=== PATIENT | male | born 1940 | race African-American/Black ===

== ENCOUNTER 2018-07-23 04:34 | Inpatient (IN) | payer OTHER ==
[~2018-07-23] VITALS: Ht 182.9 cm; Wt 78.9 kg
[2018-07-23 08:44] LABS: HEMATOCRIT. 36.5 % (42.0-52.0); HEMOGLOBIN. 12.1 g/dL (14.0-18.0); MEAN CORPUSCULAR HEMOGLOBIN 31.8 pg (28.0-32.0); MEAN CORPUSCULAR VOLUME 95.7 fL (80.0-94.0); MEAN PLATELET VOLUME 7.9 fl (7.4-10.4); PLATELET 105 x1000/uL (130-400); RED BLOOD CELL COUNT 3.81 mill/uL (4.7-6.1); RED CELL DISTRIBUTION WIDTH 14.2 % (11.6-14.6)
[2018-07-23 08:48] LABS: INR 1.1; PROTHROMBIN TIME 10.7 sec (9.1-11.1)
[2018-07-23 08:50] LABS: CHLORIDE 117 mEq/L (98-107)
[2018-07-23] MEDS ORDERED: FUROSEMIDE 100MG/10ML VIAL IV STA (09:14)
[2018-07-23] MEDS ORDERED: ALBUTEROL (0.083%) 2.5MG/3ML NEB HHN ONE (09:15)
[2018-07-23] MEDS ORDERED: SODIUM BICARBONATE 8.4% 1 MEQ/ML 50ML SYR IV ONE (09:15)
[2018-07-23] MEDS ORDERED: TRAMADOL 50MG TABLET PO ONE (09:15)
[2018-07-23] MEDS ORDERED: SODIUM POLYSTYRENE SULFONATE 15 G/60 ML BOT PO ONE (09:15)
[2018-07-23] MEDS ORDERED: DEXTROSE 50% WATER 50ML SYRINGE IV ONE (09:15)
[2018-07-23] MEDS ORDERED: INSULIN REGULAR (HUMULIN R) 300UNITS/3ML IV ONE (09:15)
[2018-07-23 09:38] LABS: PLATELET ESTIMATE SLIGHTLY DECREASED
[2018-07-23] MEDS ORDERED: SODIUM BICARBONATE 8.4% 1 MEQ/ML 50ML SYR IV SCH (10:15)
[2018-07-23] MEDS ORDERED: TRAMADOL 50MG TABLET PO PRN (10:30)
[2018-07-23] MEDS ORDERED: ACETAMINOPHEN 325MG TABLET PO PRN (10:30)
[2018-07-23 10:55] LABS: BG BASE EXCESS -10.9 mmol/L (-2.0-2.0); BG CARBOXYHEMOGLOBIN 0.9 % (0.5-1.5); BG DEOXYHEMOGLOBIN 2.9 % (0.0-5.0); BG FRACTION INSPIRED OXYGEN 21; BG HCO3 ACT 13.7 mmol/L (22.0-26.0); BG METHEMOGLOBIN 0.3 % (0.0-1.5); BG OXYGEN SATURATION 97.1 % (92.0-98.5); BG OXYHEMOGLOBIN 95.9 % (94.0-97.0); BG PCO2 27.3 mmHg (35.0-45.0); BG PH 7.319 (7.350-7.450); BG PO2 93.2 mmHg (75.0-100.0); BG SAMPLE SITE LEFT RADIAL; BG TOTAL HEMOGLOBIN 11.4 g/dL (12.0-18.0); BG VENT MODE ROOM AIR
[2018-07-23 11:35] LABS: CREATINE KINASE 160 IU/L (39-308)
[2018-07-23 12:23] LABS: PROSTRATE SPECIFIC AG TOTAL 5.88 ng/mL (0.0-4.0)
[2018-07-23 12:35] LABS: HEPATITIS B SURFACE ANTIGEN NEGATIVE
[2018-07-23] MEDS ORDERED: LIDOCAINE HCL 1% 20ML VIAL (Pyxis) INJ ONE (12:47)
[2018-07-23 13:04] LABS: HEPATITIS A AB IGM NEGATIVE (NEGATIVE)
[2018-07-23 15:30] LABS: CLARITY URINE CLEAR (CLEAR); COLOR URINE YELLOW (YELLOW); KETONES URINE 1+ (NEGATIVE); LEUKOCYTE ESTERASE URINE NEGATIVE (NEGATIVE); NITRITE URINE NEGATIVE (NEGATIVE); OCCULT BLOOD URINE NEGATIVE (NEGATIVE); PROTEIN URINE TRACE (NEGATIVE); SPECIFIC GRAVITY URINE 1.014 (1.005-1.030); UROBILINOGEN URINE 0.2 E.U./dL (0.2-1.0)
[2018-07-23 15:46] LABS: *AMPHETAMINES SCREEN URINE NEGATIVE (NEGATIVE); *BARBITURATES SCREEN URINE NEGATIVE (NEGATIVE)
[2018-07-23 15:47] LABS: *BENZODIAZEPINES SCREEN URINE NEGATIVE (NEGATIVE); *COCAINE SCREEN URINE NEGATIVE (NEGATIVE); CANNABINOID URINE SCREEN NEGATIVE (NEGATIVE); METHADONE URINE SCREEN NEGATIVE (NEGATIVE); OPIATES URINE SCREEN PRESUMTIVE POSITIVE (NEGATIVE); PHENCYCLIDINE URINE SCREEN NEGATIVE (NEGATIVE)
[2018-07-23] MEDS ORDERED: ONDANSETRON HCL 4MG/2ML INJ IV PRN (17:12)
[2018-07-23] MEDS: PANTOPRAZOLE SODIUM 40 MG/VIAL IV SCH (17:15)
[2018-07-23] MEDS: CITRIC ACID/SODIUM CITRATE SOLN 30ML UDC PO SCH (17:15)
[2018-07-23] MEDS ORDERED: CLONIDINE 0.1MG TABLET PO PRN (17:24)
[2018-07-23 18:00] VITALS: BP 147/72
[2018-07-23 20:00] VITALS: BP 156/69
[2018-07-23] MEDS: AMLODIPINE 5MG TABLET PO SCH (21:00)
[2018-07-23] MEDS ORDERED: PNEUMOCOCCAL 23-VAL P-SAC VAC 0.5 ML IM ONE (21:00)
[2018-07-23] MEDS ORDERED: ACUL5 LEFTEYE (22:45)
[2018-07-23] MEDS ORDERED: ALBU90AE IH (22:45)
[2018-07-23] MEDS ORDERED: BUDE6HFA INH (22:45)
[2018-07-23] MEDS ORDERED: DICL100G31 TP (22:45)
[2018-07-23] MEDS ORDERED: PRED5DRO22 OP (22:45)
[2018-07-23] MEDS ORDERED: METH2.5T MT (22:45)
[2018-07-23] MEDS ORDERED: NORT25CA PO (22:45)
[2018-07-23] MEDS ORDERED: FURO20TA4 PO (22:45)
[2018-07-23] MEDS ORDERED: TERA10CA4 PO (22:45)
[2018-07-23] MEDS ORDERED: BRIM2.5D OP (22:45)
[2018-07-23] MEDS ORDERED: CARB15DR2 EACHEYE (22:45)
[2018-07-23] MEDS ORDERED: CALC-1042 PO (22:45)
[2018-07-23] MEDS ORDERED: AZEL137S7 NS (22:45)
[2018-07-23] MEDS ORDERED: DIFL5DRO LEFTEYE (22:45)
[2018-07-23] MEDS ORDERED: ADAL40KI SQ (22:45)
[2018-07-23] MEDS ORDERED: CLOP75TA33 PO (22:45)
[2018-07-23] MEDS ORDERED: TIOT18CA3 ORI (22:45)
[2018-07-23] MEDS ORDERED: ROSU20TA29 PO (22:45)
[2018-07-23] MEDS ORDERED: CHOL100044 MT (22:45)
[2018-07-23] MEDS ORDERED: CARB1DRO8 OP (22:45)
[2018-07-23] MEDS ORDERED: VALS1TAB74 PO (22:45)
[2018-07-23] MEDS ORDERED: CARV25TA47 PO (22:45)
[2018-07-23] MEDS ORDERED: MONT10TA24 PO (22:45)
[2018-07-23] MEDS ORDERED: LIDO700A30 TP (22:45)
[2018-07-23] MEDS ORDERED: SODI45SP BOTHNSTRLS (22:45)
[2018-07-23] MEDS ORDERED: FOLI-43 PO (22:45)
[2018-07-23] MEDS ORDERED: PANT40TA4 PO (22:45)
[2018-07-23] MEDS ORDERED: VIAG100 PO (22:45)
[2018-07-23] MEDS ORDERED: PYRI-5 PO (22:45)
[2018-07-23] MEDS ORDERED: SODI1PAC NS (22:45)
[2018-07-23] MEDS ORDERED: DORZ10DR12 LEFTEYE (22:45)
[2018-07-24 00:22] VITALS: BP 151/66
[2018-07-24 04:00] VITALS: BP 113/61
[2018-07-24 07:05] LABS: CHLORIDE 110 mEq/L (98-107)
[2018-07-24 07:18] LABS: PHOSPHORUS 5.2 mg/dL (2.5-4.9)
[2018-07-24 07:38] LABS: HEMATOCRIT. 33.6 % (42.0-52.0); HEMOGLOBIN. 11.3 g/dL (14.0-18.0); MEAN CORPUSCULAR HEMOGLOBIN 31.8 pg (28.0-32.0); MEAN CORPUSCULAR VOLUME 94.8 fL (80.0-94.0); PLATELET 69 x1000/uL (130-400); RED BLOOD CELL COUNT 3.55 mill/uL (4.7-6.1); RED CELL DISTRIBUTION WIDTH 14.1 % (11.6-14.6)
[2018-07-24 08:00] VITALS: BP 143/64
[2018-07-24] MEDS: PANTOPRAZOLE SODIUM 40 MG/VIAL IV SCH (08:42)
[2018-07-24] MEDS: AMLODIPINE 5MG TABLET PO SCH ×2 (08:42→20:34)
[2018-07-24] MEDS: CITRIC ACID/SODIUM CITRATE SOLN 30ML UDC PO SCH ×3 (08:42→17:00)
[2018-07-24 10:35] LABS: PLATELET ESTIMATE MARKEDLY DECREASED
[2018-07-24] MEDS ORDERED: SIMETHICONE/SOD BICARB/CIT AC 1 EACH GRAN.EF.PK ONE (10:44)
[2018-07-24] MEDS ORDERED: EZ-HD SUSPENSION(BARIUM SULFATE 340GM) PO ONE (10:44)
[2018-07-24] MEDS ORDERED: BARIUM SULFATE 176 GM SUSP.RECON ONE (10:44)
[2018-07-24] MEDS: LACTULOSE 20G/30ML UDC PO SCH (11:45)
[2018-07-24 12:00] VITALS: BP 136/79
[2018-07-24] MEDS ORDERED: HYDRALAZINE 20MG/ML VIAL IV PRN (12:45)
[2018-07-24] MEDS ORDERED: PIPERACILLIN/TAZ 3.375G PREMIX 50 ML IV NR (14:00)
[2018-07-24 16:00] VITALS: BP 135/58
[2018-07-24] MEDS ORDERED: HYDROMORPHONE HCL/PF 2MG/ML CPJ IV PRN (17:00)
[2018-07-24 20:00] VITALS: BP 108/52
[2018-07-24] MEDS: PIPERACILLIN/TAZ 2.25G PREMIX 50 ML IV SCH (21:15)
[2018-07-25] VITALS (56 sets, daily range): BP systolic 55–113; BP diastolic 30–75
[2018-07-25] MEDS ORDERED: SODIUM CHLORIDE 0.9% 500 ML IV ONE ×2 (01:30→02:00)
[2018-07-25] MEDS ORDERED: NOREPINEPHRINE 8 MG in DEXT 5% WATER 242 ML IV PRN (01:30)
[2018-07-25] MEDS ORDERED: ACETAMINOPHEN 650MG SUPP PR PRN (03:15)
[2018-07-25] MEDS: PIPERACILLIN/TAZ 2.25G PREMIX 50 ML IV SCH (05:31)
[2018-07-25 08:15] LABS: HEMATOCRIT. 28.9 % (42.0-52.0); HEMOGLOBIN. 9.9 g/dL (14.0-18.0); MEAN CORPUSCULAR HEMOGLOBIN 32.3 pg (28.0-32.0); MEAN CORPUSCULAR VOLUME 94.8 fL (80.0-94.0); MEAN PLATELET VOLUME 7.1 fl (7.4-10.4); RED BLOOD CELL COUNT 3.05 mill/uL (4.7-6.1)
[2018-07-25] MEDS ORDERED: PHENYLEPHRINE 40 MG in DEXT 5% WATER 246 ML IV PRN (08:15)
[2018-07-25 08:18] LABS: INR 1.2; PARTIAL THROMBOPLASTIN TIME 32.4 sec (23.4-31.0); PROTHROMBIN TIME 12.2 sec (9.1-11.1)
[2018-07-25 08:21] LABS: PLATELET 35 x1000/uL (130-400)
[2018-07-25] MEDS: CITRIC ACID/SODIUM CITRATE SOLN 30ML UDC PO SCH (08:21)
[2018-07-25] MEDS: AMLODIPINE 5MG TABLET PO SCH (08:21)
[2018-07-25] MEDS: LACTULOSE 20G/30ML UDC PO SCH (08:21)
[2018-07-25 08:34] LABS: CHLORIDE 109 mEq/L (98-107)
[2018-07-25] MEDS: PANTOPRAZOLE SODIUM 40 MG/VIAL IV SCH (08:45)
[2018-07-25 09:20] LABS: BG BASE EXCESS -0.4 mmol/L (-2.0-2.0); BG CARBOXYHEMOGLOBIN 0.8 % (0.5-1.5); BG DEOXYHEMOGLOBIN 5.2 % (0.0-5.0); BG FRACTION INSPIRED OXYGEN 21; BG HCO3 ACT 21.3 mmol/L (22.0-26.0); BG METHEMOGLOBIN 0.3 % (0.0-1.5); BG OXYGEN SATURATION 94.7 % (92.0-98.5); BG OXYHEMOGLOBIN 93.7 % (94.0-97.0); BG PCO2 26.2 mmHg (35.0-45.0); BG PH 7.527 (7.350-7.450); BG PO2 66.8 mmHg (75.0-100.0); BG SAMPLE SITE RIGHT RADIAL; BG TOTAL HEMOGLOBIN 11.7 g/dL (12.0-18.0); BG VENT MODE ROOM AIR
[2018-07-25] MEDS ORDERED: IPRATROPIUM BROMIDE (0.02%) 0.5MG/2.5ML NEB HHN PRN (09:30)
[2018-07-25 09:44] LABS: PHOSPHORUS 3.2 mg/dL (2.5-4.9)
[2018-07-25] MEDS ORDERED: IPRATROPIUM BROMIDE (0.02%) 0.5MG/2.5ML NEB HHN SCH ×2 (10:00→14:00)
[2018-07-25 10:06] LABS: A/G RATIO 0.7 (0.7-1.7); ALBUMIN 2.6 g/dL (2.9-4.4); ALPHA-1-GLOBULIN 0.5 g/dL (0.0-0.4); ALPHA-2-GLOBULIN 0.9 g/dL (0.4-1.0); GAMMA GLOBULINS 1.6 g/dL (0.4-1.8); HIV SCREEN 4G Non Reactive (Non Reactive); M-SPIKE 0.9 g/dL (Not Observed); TOTAL PROTEIN SERUM 6.6 g/dL (6.0-8.5)
[2018-07-25 10:08] LABS: CREATINE KINASE 344 IU/L (39-308)
[2018-07-25 10:11] LABS: PLATELET ESTIMATE MARKEDLY DECREASED
[2018-07-25] MEDS ORDERED: PROPOFOL 10MG/ML 100ML 100 ML IV PRN ×2 (10:30)
[2018-07-25] MEDS ORDERED: VANCOMYCIN 1 G PREMIX 200 ML IV NR (10:30)
[2018-07-25] MEDS ORDERED: SODIUM BICARBONATE 4% (2.4MEQ) 5ML VIAL IV ONE (10:42)
[2018-07-25] MEDS ORDERED: LIDOCAINE HCL 1% 20ML VIAL (Pyxis) INJ ONE (10:42)
[2018-07-25] MEDS ORDERED: ETOMIDATE 2MG/ML 10ML VIAL IV ONE ×2 (10:45→14:16)
[2018-07-25] MEDS ORDERED: VECURONIUM BROMIDE 10 MG/VIAL IV ONE ×2 (10:45→14:16)
[2018-07-25] MEDS ORDERED: DIGOXIN 500MCG/2ML AMP IV NR (11:00)
[2018-07-25 12:20] LABS: BG BASE EXCESS -0.7 mmol/L (-2.0-2.0); BG CARBOXYHEMOGLOBIN 0.3 % (0.5-1.5); BG DEOXYHEMOGLOBIN 0.4 % (0.0-5.0); BG FRACTION INSPIRED OXYGEN 100; BG HCO3 ACT 25.8 mmol/L (22.0-26.0); BG METHEMOGLOBIN 0.3 % (0.0-1.5); BG OXYGEN SATURATION 99.6 % (92.0-98.5); BG PCO2 50.9 mmHg (35.0-45.0); BG PH 7.322 (7.350-7.450); BG SAMPLE SITE RIGHT RADIAL; BG TIDAL VOLUME(mL) 550 mL; BG TOTAL HEMOGLOBIN 10.7 g/dL (12.0-18.0); BG VENT MODE VENT - A/C; BG VENT RATE 14 set
[2018-07-25] MEDS ORDERED: LORAZEPAM 2MG/ML CPJ IV PRN (13:00)
[2018-07-25] MEDS ORDERED: MORPHINE SULFATE 250 MG in DEXT 5% WATER 240 ML IV PRN (13:00)
[2018-07-25] MEDS ORDERED: SODIUM CHLORIDE 0.9% 10ML VIAL ONE (14:16)
[2018-07-25] MEDS ORDERED: VANCOMYCIN 500 MG PREMIX 100 ML IV SCH (15:00)
[2018-07-26 04:14] LABS: KAPPA LT CHAINS FREE SERUM 175.7 mg/L (3.3-19.4); KAPPA/LAMBDA RATIO 2.13 (0.26-1.65); LAMBDA LT CHAINS FREE SERUM 82.6 mg/L (5.7-26.3)
== END 2018-07-25 15:00 | disposition expired | DRG 871 ==
LOC: EDBD 04:34 → ER 04:34 → 7WST 09:33 → ENRESERV 15:28 → CVICU 07-25 01:00
PROVIDERS: ADMIT Internal Medicine; ATTEND Internal Medicine
PROC: 02HV33Z Insertion of Infusion Device into Superior Vena Cava, Percutaneous Approach (ICD-10-PCS; 2018-07-23)
PROC: B548ZZA Ultrasonography of Superior Vena Cava, Guidance (ICD-10-PCS; 2018-07-23)
PROC: 0BH17EZ Insertion of Endotracheal Airway into Trachea, Via Natural or Artificial Opening (ICD-10-PCS; principal; 2018-07-25)
PROC: 5A1935Z Respiratory Ventilation, Less than 24 Consecutive Hours (ICD-10-PCS; 2018-07-25)
PROC: 05H533Z Insertion of Infusion Device into Right Subclavian Vein, Percutaneous Approach (ICD-10-PCS; 2018-07-25)
PROC: B546ZZA Ultrasonography of Right Subclavian Vein, Guidance (ICD-10-PCS; 2018-07-25)
DX: A41.9 Sepsis, unspecified organism (principal); E43 Unspecified severe protein-calorie malnutrition; R65.21 Severe sepsis with septic shock; J96.01 Acute respiratory failure with hypoxia; K76.7 Hepatorenal syndrome; N17.9 Acute kidney failure, unspecified; D61.818 Other pancytopenia; K57.92 Diverticulitis of intestine, part unspecified, without perforation or abscess without bleeding; Z66 Do not resuscitate; R04.0 Epistaxis; E87.5 Hyperkalemia; R13.10 Dysphagia, unspecified; M06.9 Rheumatoid arthritis, unspecified; E87.8 Other disorders of electrolyte and fluid balance, not elsewhere classified; I73.9 Peripheral vascular disease, unspecified; N18.9 Chronic kidney disease, unspecified; M79.672 Pain in left foot; M79.671 Pain in right foot; R26.2 Difficulty in walking, not elsewhere classified; I12.9 Hypertensive chronic kidney disease with stage 1 through stage 4 chronic kidney disease, or unspecified chronic kidney disease; K52.9 Noninfective gastroenteritis and colitis, unspecified; D53.9 Nutritional anemia, unspecified; E87.70 Fluid overload, unspecified; I45.10 Unspecified right bundle-branch block; Z96.649 Presence of unspecified artificial hip joint; T45.1X5A Adverse effect of antineoplastic and immunosuppressive drugs, initial encounter; K75.9 Inflammatory liver disease, unspecified; N20.0 Calculus of kidney; Z51.5 Encounter for palliative care; Z82.49 Family history of ischemic heart disease and other diseases of the circulatory system; Z85.46 Personal history of malignant neoplasm of prostate; Z90.49 Acquired absence of other specified parts of digestive tract; Y92.89 Other specified places as the place of occurrence of the external cause; Z79.899 Other long term (current) drug therapy; Z68.23 Body mass index [BMI] 23.0-23.9, adult
CPT/HCPCS: 36415; 36569; 36600; 71045; 73620; 74176; 74220; 76700; 76937; 80305; 82105; 82140; 82248; 82375; 82550; 82805; 82962; 83036; 83605; 83735; 83883; 84100; 84153; 84155; 84165; 86705; 86709; 86803; 86850; 86900; 87340; 87389; 93005; 93923; 93970; 96374; 96375; 99291; C1725; C1752; C9113; J1160; J1170; J1815; J1940; J2370; J2543; J2704; J3370; J3490; J7040; J7050; J7060; J7517; A4315; G0103